=== PATIENT | female | born 1950 | race Caucasian/White ===

== ENCOUNTER 2016-04-21 17:14 | Inpatient (IN) | payer OTHER ==
[~2016-04-21] VITALS: Ht 157.5 cm; Wt 123.3 kg
[2016-04-21 17:26] VITALS: BP 175/112; PULSE 105; RESP 20; O2SAT 95
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
[2016-04-21 18:44] LABS: BASOPHILS % (AUTO) 0.4 % (0-3); EOSINOPHILS % (AUTO) 1.1 % (0-5); MONOCYTES % (AUTO) 5.2 % (4-12); Mean Corpuscular Hemoglobin 28.9 pg (27.0-35.0); Mean Corpuscular Volume 86.4 fL (81-100); NEUTROPHILS % (AUTO) 68.8 % (40-74); Platelet Count 243 bil/L (150-400)
[2016-04-21 19:00] LABS: INR 0.95 ratio
[2016-04-21 19:25] VITALS: BP 136/80; PULSE 96; RESP 20; O2SAT 94
[2016-04-21 19:26] LABS: TROPONIN T < 0.010 ug/L (0.0-0.011)
--- NOTE | 2016-04-21 19:26 | DRSVH ---
PROCEDURE: CT BRAIN (TPA) ([id number]) INDICATIONS: Stroke TECHNIQUE: Noncontrast 4.5 mm thick angled axial sections acquired from the foramen magnum to the vertex, with c oronal reformats. COMPARISON: None. FINDINGS: Image quality: Excellent. CSF spaces: Basal cisterns are patent. No extra-axial fluid collections. Ventricles are normal in size and shape except at the atrium of the left lateral ventricle where mild encephalomalacia at the medial left occipital region appears to produce slight enlargement, consistent with old stroke. Kevon tionally, over the high parietal cerebrum region there is what appears to be a subacute stroke, with slight effacement of the adjacent cortical sulci.. Brain: No midline shift. No intracranial masses or hemorrhage. Moreno-white matter interface is norm al. Skull and face: Calvarium and visualized facial bones are intact, without suspicious lesions. Sinuses: Visualized sinuses and mastoids are clear. IMPRESSION: The patient appears to have had a prior or chronic stroke medial left occipital region, a nd also what appears to be a subacute stroke at the superior left parietal cerebrum. This information was immediately called to the ordering emergency room physician for stroke protocol CT scan communication, at 7:20 in the early evening. This study fulfills neurological imaging criteria for inclusion or exclusion of acute stroke therapie s based on available published neurological imaging guidelines. Dictated by: Krishan Fontanez M.D. on 04/21/2016 at 19:20 Approved by: Krishan Fontanez M.D. on 04/21/2016 at 19:25
--- NOTE | 2016-04-21 19:55 | DRSVH ---
PROCEDURE: X-RAY CHEST ONE VIEW, PORTABLE ([id number]) INDICATIONS: CVA TECHNIQUE: One view of the chest was acquired. COMPARISON: None. FINDINGS: Surgical changes and devices: None. Lungs and pleura: No pleural effusions or pneumothorax. Lungs are clear. Mediastinum: Mediastinal contours appear normal. Heart size is normal. Bones and chest wall: No suspicious bony lesions. Overlying soft tissues appear unremarkable. IMPRESSION: Mildly reduced inspiratory volume greater on the right than the left and no acute disease is found. Mild bibasilar atelectasis. Dictated by: Krishan Fontanez M.D. on 04/21/2016 at 19:54 Approved by: Krishan Fontanez M.D. on 04/21/2016 at 19:55
[2016-04-21 21:22] VITALS: BP 134/60; PULSE 89; RESP 21; O2SAT 95
--- NOTE | 2016-04-21 21:24 | DRSVH ---
PROCEDURE: CT ANGIO BRAIN NECK TPA INDICATIONS: SLURRED SPEECH, DIFFICULTY USING RIGHT HAND TECHNIQUE: Pre-contrast 4.5 mm thick sections acquired from the foramen magnum to the vertex. After the adminis tration of intravenous contrast, 1 mm thick sections acquired from the aortic arch through the [place]. Post-contrast 4.5 mm thick sections then re-acquired from the foramen magnum to the vert ex. 3-dimensional [id number] (MIP) and/or volume rendering reformats were acquired of the central intracranial vasculature and neck separately. For radiation dose reduction, the foll owing was used: automated exposure control, adjustment of mA and/or kV according to patient size. COMPARISON: [facility], CT, BRAIN (TPA), 04/21/2016, 18:44. FINDINGS: Image quality: Excellent. BRAIN: CSF spaces: Ventricles are normal in size and shape except for slight prominence of the atrium of th e left lateral ventricle associated with what appears to be a small old stroke involving the medial l eft occipital region (remote past prior head CT or brain MRI is not available for review). Basal cis terns are patent. No extra-axial fluid collections. Brain: No midline shift. No intracranial bleeds or masses. Moreno-white matter interface appears int act except for a band of what appears to be subacute stroke involving the parietal lobe, near the vishal harrison of the cerebrum, left hemisphere. There is also the previously discussed area of medial left occ ipital encephalomalacia that appears to represent sequela of prior chronic stroke in that area from t he distant past. The subacute appearing abnormality measures approximately 1.5 x 2.5 x 3.5 cm, and a ppears to have slight mass effect effacing the immediate adjacent cortical sulci. A hyperacute ische rodney injury generally would not be identifiable by CT scanning but would be visible by MR scanning. Skull and face: Calvarium and facial bones appear intact, without suspicious lesions. Orbits appear normal. Sinuses: Sinuses and mastoids are clear. HEAD CT ANGIOGRAPHY: Anterior circulation: Intracranial internal carotid arteries are normal in size and flow. The flow within the paired anterior cerebral arteries is normal and symmetric. The flow within the middle cer ebral arteries is normal and symmetric. The anterior communicating artery is seen. No aneurysms are seen. Posterior circulation: Visualized portions of the vertebral arteries demonstrate normal anatomic kee iant asymmetric caliber, left vertebral dominant, and join to form a normal appearing basilar artery. Flow within the posterior cerebral arteries is normal and symmetric. No aneurysms are seen. NECK CT ANGIOGRAPHY: Carotid system: The great vessels demonstrate a conventional anatomy as they arise from the aortic a rch. The origins of the common carotid arteries appear patent. The common carotid arteries demonstr ate normal caliber and somewhat tortuous courses. The bifurcation regions are both widely patent. T he internal carotid arteries demonstrate normal calibers and somewhat tortuous courses. Posterior circulation: The origins of the vertebral arteries both appear widely patent. The more streeter perior extracranial portions of both vertebral arteries also demonstrate somewhat tortuous courses an d normal anatomic variant asymmetric left greater than right calibers. They join to form a normal ap pearing basilar artery. Soft tissues: Visualized neck soft tissues demonstrate no suspicious abnormalities. Bones: No suspicious bony lesions. Visualized cervical spine appears normally aligned. IMPRESSION: 1. As was seen during CT scanning earlier this evening there appears to be a medial left occipital c hronic infarction, and a subacute superior left parietal area of ischemic injury. MR scanning could be utilized if clinically warranted to confirm presence of subacute stroke in the area of current CT concern. 2. The cervical arterial vasculature, both carotid and vertebral, appears somewhat tortuous and this is generally seen in a patient with chronic hypertension. No aneurysm or dissection is found. 3. There is a normal anatomic variant dominant left vertebral artery. The arterial vasculature appe ars free of significant atherosclerotic soft or calcific plaque. This raises concern for cardiogenic origin of both the chronic and presumed subacute areas of left cerebrum abnormalities noted. 4. The cervical and intracranial arterial vasculature shows no identifiable aneurysm or thrombus/emb olus. This information was immediately called and discussed with the emergency room physician caring for th e patient, at 9:15 in the evening. Dictated by: Krishan Fontanez M.D. on 04/21/2016 at 21:06 Approved by: Krishan Fontanez M.D. on 04/21/2016 at 21:24
[2016-04-21] MEDS ORDERED: POTA20TA16 PO (21:37)
[2016-04-21] MEDS ORDERED: FRSM80T PO (21:37)
[2016-04-21] MEDS ORDERED: METF1000 PO (21:37)
[2016-04-21] MEDS ORDERED: LISI2.5T PO (21:37)
[2016-04-21] MEDS ORDERED: DIGO125T73 PO (21:37)
[2016-04-21] MEDS ORDERED: CARV3.122 PO (21:37)
[2016-04-21] MEDS ORDERED: PANT40TA3 PO (21:37)
[2016-04-21] MEDS ORDERED: Polyethylene Glycol (PEG) 17 Gm Powder PO PRN ×2 (21:40→22:40)
[2016-04-21] MEDS ORDERED: Ondansetron 2 mg/mL 2 mL Inj IV PRN ×2 (21:40→22:40)
[2016-04-21] MEDS ORDERED: Alum-Mag Hydrox-Simeth 30 mL Suspension PO PRN ×2 (21:40→22:40)
[2016-04-21] MEDS ORDERED: Labetalol 5 mg/mL 4 mL Inj IVPUSH PRN (22:40)
[2016-04-21 22:48] VITALS: BP 150/82; PULSE 95; RESP 20; O2SAT 96
[2016-04-21 22:54] VITALS: PULSE 86
[2016-04-21 23:48] LABS: INR 0.97 ratio
[2016-04-22] VITALS (9 sets, daily range): BP systolic 130–158; BP diastolic 81–93; PULSE 76–89; RESP 14–18; O2SAT 93–98
[2016-04-22 00:11] LABS: Magnesium 1.2 mg/dL (1.6-2.6)
[2016-04-22] MEDS ORDERED: Magnesium Sulfate 50% Inj 3 GM in Dextrose 5% 100 ML IV ONE (00:20)
[2016-04-22] MEDS ORDERED: Glucose 40% Oral Gel 15 Gm Tube PO PRN (00:35)
[2016-04-22] MEDS ORDERED: Mag Sulf 4 Gm/100 mL IV Premix (Mag < 1.6 & Creat < 2) IV ONE (00:40)
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
--- NOTE | 2016-04-22 03:51 | NUR ---
Admit [place] [facility] [place] 2230 with tech via stretcher. Pt easily able to ambulate to scale and then to bed w/o any assistance. Pt has speech delay and often is stuck word searching. Pt is A&O x 3, though it is difficult for her to get the words out. Pt presents with no strength deficits or balance deficit favoring either side. Pt states the R side feels different, that it feels "smaller". Pt oriented to room and call light, non slip socks for safety.
--- NOTE | 2016-04-22 03:55 | NUR ---
O2 Pt stated she uses oxymask at night, pt is high risk for SIMEON, oxymask in use tonight on 3L with a CPOX. Pt has frequently desat to high 80's but quickly returns to high 90's.
[2016-04-22 06:16] LABS: BASOPHILS % (AUTO) 0.2 % (0-3); EOSINOPHILS % (AUTO) 1.2 % (0-5); MONOCYTES % (AUTO) 4.9 % (4-12); Mean Corpuscular Hemoglobin 28.9 pg (27.0-35.0); Mean Corpuscular Volume 87.4 fL (81-100); NEUTROPHILS % (AUTO) 64.3 % (40-74); Platelet Count 239 bil/L (150-400)
[2016-04-22] MEDS: Heparin 5,000 Unit/mL Inj SUBQ SCH ×2 (07:37→21:39)
[2016-04-22] MEDS: Insulin LISPRO 300 Unit/3 mL Inj SUBQ SCH ×4 (08:20→21:38)
--- NOTE | 2016-04-22 08:54 | NUR ---
MRI Pt transported to MRI via by transporter. Pt drowsy, able to transfer SBA/1 PA to WC Addendum: 04/22/16 at 0925 by SHERYL ANDERSON RN 0930 Pt returned from MRI Addendum: 04/22/16 at 1413 by SHERYL ANDERSON RN UA reported pt had yellow colored oatmeal consistency loose stool.
--- NOTE | 2016-04-22 10:04 | DRSVH ---
PROCEDURE: MRI BRAIN WITHOUT CONTRAST ([id number]) INDICATIONS: stroke TECHNIQUE: Non-contrast axial T1 spin echo, axial T2 fast spin echo, sagittal and axial FLAIR, coronal T2 fast s pin echo, axial gradient echo, axial diffusion and ADC through the brain. COMPARISON: [facility], CT, CT ANGIO BRAIN NECK TPA, 04/21/2016, 20:06. [facility], CT, BRAIN (TPA), 04/21/2016, 18:44. FINDINGS: Image quality: Excellent. CSF spaces: Ventricles appear symmetric in size and shape. Basal cisterns are patent. No extra-axi al fluid collections. Brain: No intracranial bleeds or mass effects. There is cerebral volume loss for age. There are pe riventricular and deep white matter chronic small vessel ischemic changes. Brainstem appears normal. Diffusion-weighted images demonstrate restricted diffusion within the left posterior parietal lobe with corresponding hypointense ADC signal/hyperintense T2/FLAIR signal. There is no associated superi mposed hemorrhage. No chronic ischemic insults. Normal intravascular flow voids are present. Skull and face: Calvarial bone marrow is normal in signal. Orbits are normal. Sinuses: Sinuses and mastoids are clear. IMPRESSION: 1. Restricted diffusion within the left posterior parietal region consistent with subacute ischemia. No superimposed hemorrhage. 2. Moderate chronic microvascular ischemic changes. Dictated by: Annetta Titus M.D. on 04/22/2016 at 9:41 Approved by: Annetta Titus M.D. on 04/22/2016 at 10:02
--- NOTE | 2016-04-22 11:00 | NUR ---
Evaluation completed. Please go to "Notes" then click on "Assessments and Notes" (bottom left corner of screen). Then select appropriate discipline tab on top of screen.
--- NOTE | 2016-04-22 11:48 | NUR ---
Evaluation completed. Please go to "Notes" then click on "Assessments and Notes" (bottom left corner of screen). Then select appropriate discipline tab on top of screen.
--- NOTE | 2016-04-22 12:14 | NUR ---
Evaluation completed. Please go to "Notes" then click on "Assessments and Notes" (bottom left corner of screen). Then select appropriate discipline tab on top of screen.
--- NOTE | 2016-04-22 14:42 | NUR ---
NUTRITION ASSESSMENT: ASSESS: 65 YO female admitted for CVA. Pt diet has been advanced to General but no po intake has been reported. PMHx: DM type 2, HTN, obesity, CKD stage III, SIMEON, duodenal ulcer, anemia. LABS: Reviewed. Glu 189, Alb 3.6. MEDS: Reviewed. GI: No BM reported yet. CURRENT WT: 123.6 kg. Adj BW: 68.4 kg. DIET: General, No po intake reported. EST. NEEDS (BMI): 2600-6886 kcals (25-30 kcals/kg Adj BW), 80-100 g protein (1.2-1.5 g/kg Adj BW) NUTRITION DIAGNOSIS: 1.) No nutritional diagnosis at this time. NUTRITION INTERVENTION: 1.) No nutritional intentions at this time. MONITOR / EVAL: PO intake, labs, nutritional status. Follow per moderate nutritional risk guidelines.
--- NOTE | 2016-04-22 16:34 | NUR ---
Social Work-screening: Data:EMR Reviewed. Pt is a 65 y/o female who was admitted on 04/21/16 for CVA per H&P. Pt's insurance is and PCP is Alex Hanks. EMR Reviewed. PT/ST/OT have cleared pt for home with outpt services. PT resides at home with . No anticipated discharge needs. SW will continue to follow if needs arise. Assessment:Pt who is independent at baseline. Plan:Pt to discharge home when medically stable via POV. No anticipated discharge needs. SW will continue to follow if needs arise. GIO Latham
[2016-04-23 02:39] VITALS: PULSE 75
--- NOTE | 2016-04-23 03:48 | NUR ---
Shift Note Pt slept most of shift. Up to bathroom x1. Desat down to mid 70s while sleeping r/t SIMEON then goes back up to high 90s. Put on continuous pulse ox. Pt stated there is no one who can bring in her BiPap from home. Pt continues to have difficulty finding words. bed down, locked and call light in reach.
[2016-04-23 04:28] VITALS: BP 174/98; PULSE 73; RESP 20; O2SAT 98
[2016-04-23 07:09] LABS: BASOPHILS % (AUTO) 0.4 % (0-3); EOSINOPHILS % (AUTO) 1.7 % (0-5); MONOCYTES % (AUTO) 5.7 % (4-12); Mean Corpuscular Hemoglobin 28.9 pg (27.0-35.0); Mean Corpuscular Volume 87.3 fL (81-100); NEUTROPHILS % (AUTO) 57.2 % (40-74); Platelet Count 206 bil/L (150-400)
[2016-04-23 09:14] VITALS: BP 166/105; PULSE 90; RESP 16; O2SAT 95
[2016-04-23] MEDS: Insulin LISPRO 300 Unit/3 mL Inj SUBQ SCH ×2 (09:25→12:35)
[2016-04-23] MEDS: Heparin 5,000 Unit/mL Inj SUBQ SCH (09:26)
[2016-04-23 10:16] VITALS: PULSE 82
--- NOTE | 2016-04-23 12:44 | DRSVH ---
Formerly [facility] [address] [place] [address] Echocardiogram Report Name: DESTINEY OLIVEROS Study Date: 04/23/2016 Height: 62 in Hospital Exam Location: [facility] Weight: 272 lb Gender: Female BSA: 2.2 m2 : 1950 Age: 65 yrs BP: 174/98 mmHg Reason For Study: CVA Ordering Physician: Performed By: Bisi Guzmán Referring Physician: CHANDLER MURRAY Interpretation Summary 1) Moderately dilated left ventricle with moderately reduced systolic function (EF 35-40%). 2) Apical anterolateral wall, apical anterior wall, inferolateral wall, proximal to mid anterior wall and proximal to mid anterolateral wall have severe hypokinesis. The mid to distal inferior wall and the septum have the best wall motion. 3) Normal right ventricular size and function. 4) No hemodynamically significant valvular abnormalities. 5 No interatrial shunt present based on bubble study. 6) No prior study available for comparison. 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 Procedure: A two-dimensional transthoracic echocardiogram with color flow and Doppler was performed. The study quality was technically adequate. There is no prior echocardiogram noted for this patient. A contrast injection of Definity was performed to improve assessment of LV function. A saline contrast injection was performed to assess for cardiac shunting. The patient was in normal sinus rhythm during the exam. Left Ventricle: The left ventricle is moderately dilated. There is normal left ventricular wall thickness. The ejection fraction is estimated to be 35- 40%. Left ventricular systolic function is moderately reduced. Apical anterolateral wall, apical anterior wall, inferolateral wall, proximal to mid anterior wall and proximal to mid anterolateral wall have severe hypokinesis. The mid to distal inferior wall and the septum have the best wall motion. Assessment of diastolic parameters suggests a pseudonormalization pattern, consistent with elevated filling pressures. Right Ventricle: The right ventricle is normal in size, thickness and function. Atria: Both atria are normal in size. Injection of contrast documented no interatrial shunt. Mitral Valve: The mitral valve leaflets appear thickened, but open well. There is no mitral regurgitation noted. Aortic Valve: The aortic valve is trileaflet. The aortic valve opens well. There is mild aortic valve sclerosis. There is no hemodynamically significant valvular aortic stenosis. There is trace aortic regurgitation. Tricuspid Valve: The tricuspid valve is normal. No tricuspid regurgitation. Pulmonary artery pressures cannot be estimated because of the lack of a measurable TR jet velocity. Pulmonic Valve: The pulmonic valve is not well visualized. There is a trace or physiologic amount of pulmonic regurgitation. Great Vessels: The aortic root is normal size. The ascending aorta is at the upper limits of normal in size. The aortic arch could not be visualized. The pulmonary artery is not well visualized, but is probably normal size. The inferior vena cava was not visualized. Pericardium/ Pleura There is no pericardial effusion. There is no pleural effusion. MMode/2D Measurements & Calculations LVIDd: 6.2 cm LA dimension LVOT diam LV tobar. diameter/BSA LVIDs: 5.4 cm (cm/m^2): 2.9 FS: 14.1 % LA A2 area AoV Opening EPSS: 1.5 cm IVSd: 0.92 cm Ao root diam LVPWd: 1.2 cm LA A4 area asc Aorta LA length (vol) Diam: 3.5 cm LA vol: 48.9 ml LA vol index : 22.4 ml/m2 LV sys. diameter/BSA (cm/m^2): 2.5 Doppler Measurements & Calculations Ao V2 max: 214.7 cm/secMV E max hawk MV E/A: 0.59 PA V2 max Ao max P.4 mmHg : 68.6 cm/sec Med Peak E' Hawk : 69.2 cm/sec Ao mean P.4 mmHg MV A max hawk PA mean PG : 116.6 cm/sec E/E' med: 29.6 MV P1/2t: 81.4 msecLat Peak E' Hawk PA Accel Time : 0.09 sec E/E' lat: 9.4 E/e' average Pulm A Revs Dur MV A dur: 0.14 sec MV dec time: 0.28 sec MV P1/2t max hawk Ao V2 mean PA V2 mean : 147.4 cm/sec : 53.6 cm/sec Ao V2 VTI: 42.5 cm MVA(P1/2t): 2.7 cm2 Pulm A Revs Dur - MV A Dur: -0.01 msec Reading Physician:12:43 PM
[2016-04-23] MEDS ORDERED: Magnesium Sulf 2 Gm/50mL Water 2 GM in IV Premix 1 EACH IV ONE ×2 (12:55→15:05)
[2016-04-23 13:20] VITALS: BP 144/89; PULSE 97; RESP 16; O2SAT 97
--- NOTE | 2016-04-23 13:51 | NUR ---
Social Work Readiness for Discharge: SW met with patient at bedside to discuss discharge plan. Per report in rounds, discussion of possible discharge today. SW spoke to patient regarding recommendations for inpt rehab. PT notes reflect ambulation of 125ft. SW spoke with OT rep Kolb to to assess patient today for further eval. Patient states being in agreement to inpt rehab at [facility] vs outpt therapy treatments upon discharge. Patient states she to contact local outpt therapy center upon discharge for appointment if recommendations for outpt therapy. Patient payer as [employer]. Pending further therapy eval, SW to ensure inpt rehab vs outpt PT upon discharge. Patient states her is retired and able to care and assist with needs at home upon discharge. SW to follow. PLAN: Inpt rehab vs outpt rehab, pending clinical course Nadeen POWERS Addendum: 04/23/16 at 1436 by JOSH AGUIRRE Per OT, recommendations for home with outpt services at this time. Patient well to discharge home with outpt therapies. Outpt Script in chart and patient to follow up for appointment. No other needs PLAN: Home with and outpt therapies follow up Nadeen POWERS
--- NOTE | 2016-04-23 13:55 | PCM.PNMED ---
Subjective Date of Service Apr 23, 2016 Subjective Pt seen and examined today. Patient is in good spirits however she still has difficulty recollecting words. Patient is otherwise stable for discharge. Exam Vital Signs Vital Sign - Last Date Time Temp Pulse Resp B/P Pulse Ox O2 Delivery O2 Flow Rate FiO2 04/23/16 10:16 82 04/23/16 09:14 36.8 16 166/105 95 Room Air 04/23/16 04:28 5.00 Intake and Output 04/22/16 04/22/16 04/23/16 Cumulative From/Thru 15:00 23:00 07:00 04/21/16 17:26 - 04/23/16 04:28 Intake Total 400 ml 400 ml 923 ml Balance 400 ml 400 ml 923 ml Intake Oral 400 ml 400 ml IV Total 400 ml 523 ml # Voids 1 2 4 # Bowel Movements 1 1 Exam General: Obese female sitting up on bed. Some slurred speech. No acute distress , well-developed, well-nourished, appropriately interactive HEENT: Nasal canula in place.Normocephalic, atraumatic. External ears without defect. Pupils equal, round, and reactive to light and accommodation. Moist conjunctivae. Oropharynx with moist mucosa. Neck: Supple with full range of motion.No lymphadenopathy Cardiovascular: Regular rate and rhythm with no murmurs, rubs, or gallops appreciated Pulmonary: Clear to auscultation bilaterally with no crackles, wheezes, or rhonchi. Normal respiratory effort with no use of accessory muscles. Abdomen: Bowel tones present. Soft, nontender, nondistended. Extremities: No clubbing, cyanosis, edema, appreciated. Skin: Normal temperature, turgor, and texture; no rash, ulcers, or subcutaneous nodules appreciated. Psychiatric: Normal mood and affect. Alert and oriented to person, place, and time. Neuro: Word searching, slurred speech, decreased sensation on right side( face, arm, leg). 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 Normal muscle strength , tone, and bulk bilaterally. Lab and Diagnostics Result Diagram: 04/23/16 0600 04/23/16 0600 X-Rays, CTs and MRIs PROCEDURE: X-RAY CHEST ONE VIEW, PORTABLE ([id number]) INDICATIONS: CVA TECHNIQUE: One view of the chest was acquired. COMPARISON: None. FINDINGS: Surgical changes and devices: None. Lungs and pleura: No pleural effusions or pneumothorax. Lungs are clear. Mediastinum: Mediastinal contours appear normal. Heart size is normal. Bones and chest wall: No suspicious bony lesions. Overlying soft tissues appear unremarkable. IMPRESSION: Mildly reduced inspiratory volume greater on the right than the left and no acute disease is found. Mild bibasilar atelectasis. Dictated by: Krishan Fontanez M.D. on 04/21/2016 at 19:54 Approved by: Krishan Fontanez M.D. on 04/21/2016 at 19:55 PROCEDURE: CT BRAIN (TPA) ([id number]) INDICATIONS: Stroke TECHNIQUE: Noncontrast 4.5 mm thick angled axial sections acquired from the foramen magnum to the vertex, with coronal reformats. COMPARISON: None. FINDINGS: Image quality: Excellent. CSF spaces: Basal cisterns are patent. No extra-axial fluid collections. Ventricles are normal in size and shape except at the atrium of the left lateral ventricle where mild encephalomalacia at the medial left occipital region appears to produce slight enlargement, consistent with old stroke. Additionally, over the high parietal cerebrum region there is what appears to be a subacute stroke, with slight effacement of the adjacent cortical sulci.. Brain: No midline shift. No intracranial masses or hemorrhage. Moreno-white matter interface is normal. Skull and face: Calvarium and visualized facial bones are intact, without suspicious lesions. Sinuses: Visualized sinuses and mastoids are clear. IMPRESSION: The patient appears to have had a prior or chronic stroke medial left occipital region, and also what appears to be a subacute stroke at the superior left parietal cerebrum. This information was immediately called to the ordering emergency room physician for stroke protocol CT scan communication, at 7:20 in the early evening. This study fulfills neurological imaging criteria for inclusion or exclusion of acute stroke therapies based on available published neurological imaging guidelines. Dictated by: Krishan Fontanez M.D. on 04/21/2016 at 19:20 Approved by: Krishan Fontanez M.D. on 04/21/2016 at 19:25 PROCEDURE: CT ANGIO BRAIN NECK TPA INDICATIONS: SLURRED SPEECH, DIFFICULTY USING RIGHT HAND TECHNIQUE: Pre-contrast 4.5 mm thick sections acquired from the foramen magnum to the vertex. After the administration of intravenous contrast, 1 mm thick sections acquired from the aortic arch through the [place]. Post-contrast 4.5 mm thick sections then re-acquired from the foramen magnum to the vertex. 3- dimensional tijbvda-szeijctwh-eceinkvjhm (MIP) and/or volume rendering reformats were acquired of the central intracranial vasculature and neck separately. For radiation dose reduction, the following was used: automated exposure control, adjustment of mA and/or kV according to patient size. COMPARISON: [facility], CT, BRAIN (TPA), 04/21/2016, 18:44. FINDINGS: Image quality: Excellent. BRAIN: CSF spaces: Ventricles are normal in size and shape except for slight prominence of the atrium of the left lateral ventricle associated with what appears to be a small old stroke involving the medial left occipital region ( remote past prior head CT or brain MRI is not available for review). Basal cisterns are patent. No extra-axial fluid collections. Brain: No midline shift. No intracranial bleeds or masses. Moreno-white matter interface appears intact except for a band of what appears to be subacute stroke involving the parietal lobe, near the vertex of the cerebrum, left hemisphere. There is also the previously discussed area of medial left occipital encephalomalacia that appears to represent sequela of prior chronic stroke in that area from the distant past. The subacute appearing abnormality measures approximately 1.5 x 2.5 x 3.5 cm, and appears to have slight mass effect effacing the immediate adjacent cortical sulci. A hyperacute ischemic injury generally would not be identifiable by CT scanning but would be visible by MR scanning. Skull and face: Calvarium and facial bones appear intact, without suspicious lesions. Orbits appear normal. Sinuses: Sinuses and mastoids are clear. HEAD CT ANGIOGRAPHY: Anterior circulation: Intracranial internal carotid arteries are normal in size and flow. The flow within the paired anterior cerebral arteries is normal and symmetric. The flow within the middle cerebral arteries is normal and symmetric. The anterior communicating artery is seen. No aneurysms are seen. Posterior circulation: Visualized portions of the vertebral arteries demonstrate normal anatomic variant asymmetric caliber, left vertebral dominant , and join to form a normal appearing basilar artery. Flow within the posterior cerebral arteries is normal and symmetric. No aneurysms are seen. NECK CT ANGIOGRAPHY: Carotid system: The great vessels demonstrate a conventional anatomy as they arise from the aortic arch. The origins of the common carotid arteries appear patent. The common carotid arteries demonstrate normal caliber and somewhat tortuous courses. The bifurcation regions are both widely patent. The internal carotid arteries demonstrate normal calibers and somewhat tortuous courses. Posterior circulation: The origins of the vertebral arteries both appear widely patent. The more superior extracranial portions of both vertebral arteries also demonstrate somewhat tortuous courses and normal anatomic variant asymmetric left greater than right calibers. They join to form a normal appearing basilar artery. Soft tissues: Visualized neck soft tissues demonstrate no suspicious abnormalities. Bones: No suspicious bony lesions. Visualized cervical spine appears normally aligned. IMPRESSION: 1. As was seen during CT scanning earlier this evening there appears to be a medial left occipital chronic infarction, and a subacute superior left parietal area of ischemic injury. MR scanning could be utilized if clinically warranted to confirm presence of subacute stroke in the area of current CT concern. 2. The cervical arterial vasculature, both carotid and vertebral, appears somewhat tortuous and this is generally seen in a patient with chronic hypertension. No aneurysm or dissection is found. 3. There is a normal anatomic variant dominant left vertebral artery. The arterial vasculature appears free of significant atherosclerotic soft or calcific plaque. This raises concern for cardiogenic origin of both the chronic and presumed subacute areas of left cerebrum abnormalities noted. 4. The cervical and intracranial arterial vasculature shows no identifiable aneurysm or thrombus/embolus. This information was immediately called and discussed with the emergency room physician caring for the patient, at 9:15 in the evening. Dictated by: Krishan Fontanez M.D. on 04/21/2016 at 21:06 Approved by: Krishan Fontanez M.D. on 04/21/2016 at 21:24 Assessment & Plan Acute CVA, present on admission, ongoing -CT and CTA positive for subacute stroke at superior left parietal region -Pt presented outside of window for tPA. ER contacted [facility], who stated pt was not candidate for surgical treatment -Pt still has difficulty finding the right words at times - Pt has no motor/sensory dyfunctions - will recommned home pt/ot - will dc on aspirin and statin Diabetes mellitus, present on admission, ongoing -Low dose correctional scale to be used -resume home meds on discharge Hypomagnesemia, present on admission, ongoing -Mag low at 1.2 -Mag 4gm ordered Chronic hypertension, present on admission, ongoing -Patient on digoxin, will hold home dose -Digoxin level of 0.7 -Holding home medications GERD -Holding home medications PCP: Dr Alex Hanks Code: Compressions OK, Cardioversion OK. DO NOT INTUBATE. VTE Prophylaxis: Sub-Q Heparin (Unfractionated) VTE Mechanical Devices: Intermittant Pneumatic CD Resuscitation Status: Limited Interventions (cpr and cardioversion OK. DO NOT INTUBATE) Mohan Nath MD Apr 23, 2016 13:54
[2016-04-23] MEDS ORDERED: ASPI-973 PO (14:00)
[2016-04-23] MEDS ORDERED: ATOR40TA69 PO (14:00)
[2016-04-23] MEDS ORDERED: [UNRECOGNIZED DRUG - REMARK] (14:03)
[2016-04-23] MEDS ORDERED: physical therapy (14:03)
--- NOTE | 2016-04-23 16:54 | NUR ---
Discharge Pt. discharged to home in stable condition at 1630. Denies chest pain, SOB, N/V. AOX3. Word searching. Equal strength to all extremities. IV and tele dc'd prior to discharge. All belongings, scripts and instructions sent home with pt. driving pt. home. No questions or concerns at this time.
--- NOTE | 2016-05-16 20:12 | PCM.DC.MED ---
Discharge Summary Date of Service May 16, 2016 Dates of Hospitalization Date of Hospital Admission Apr 21, 2016 at 21:49 Date of Discharge: Apr 23, 2016 Providers: Admitting Physician: Laurie Milan DO Primary Care Physician: Alex Hanks MD Attending Physician: Laurie Milan DO Diagnosis at Time of Discharge Diagnosis at Time of Discharge 1. Acute cerebrovascular accident 2. Diabetes mellitus, type II, chronic 3. Hypomagnesemia 4. Hypertension, chronic 5. Systolic congestive heart failure, possible new finding this admission Consultations None Procedures XRay, CTs & MRIs MRI BRAIN WITHOUT CONTRAST IMPRESSION: 1. Restricted diffusion within the left posterior parietal region consistent with subacute ischemia. No superimposed hemorrhage. 2. Moderate chronic microvascular ischemic changes. Dictated and approved by: Annetta Titus M.D. on 04/22/2016 at 9:41 CT ANGIO BRAIN NECK TPA IMPRESSION: 1. As was seen during CT scanning earlier this evening there appears to be a medial left occipital chronic infarction, and a subacute superior left parietal area of ischemic injury. MR scanning could be utilized if clinically warranted to confirm presence of subacute stroke in the area of current CT concern. 2. The cervical arterial vasculature, both carotid and vertebral, appears somewhat tortuous and this is generally seen in a patient with chronic hypertension. No aneurysm or dissection is found. 3. There is a normal anatomic variant dominant left vertebral artery. The arterial vasculature appears free of significant atherosclerotic soft or calcific plaque. This raises concern for cardiogenic origin of both the chronic and presumed subacute areas of left cerebrum abnormalities noted. 4. The cervical and intracranial arterial vasculature shows no identifiable aneurysm or thrombus/embolus. This information was immediately called and discussed with the emergency room physician caring for the patient, at 9:15 in the evening. Dictated and approved by: Krishan Fontanez M.D. on 04/21/2016 at 21:06 CT BRAIN (TPA) IMPRESSION: The patient appears to have had a prior or chronic stroke medial left occipital region, and also what appears to be a subacute stroke at the superior left parietal cerebrum. This information was immediately called to the ordering emergency room physician for stroke protocol CT scan communication, at 7:20 in the early evening. This study fulfills neurological imaging criteria for inclusion or exclusion of acute stroke therapies based on available published neurological imaging guidelines. Dictated and approved by: Krishan Fontanez M.D. on 04/21/2016 at 19:20 X-RAY CHEST ONE VIEW, PORTABLE IMPRESSION: Mildly reduced inspiratory volume greater on the right than the left and no acute disease is found. Mild bibasilar atelectasis. Dictated and approved by: Krishan Fontanez M.D. on 04/21/2016 at 19:54 ECG 12 Lead Sinus rhythm, rate 95, QTC 443, left atrial enlargement, left anterior fascicular block, no acute ST changes, possible T-wave abnormalities in the lateral leads. Cardiac Echo Impression Echocardiogram Report Interpretation Summary 1) Moderately dilated left ventricle with moderately reduced systolic function ( EF 35-40%). 2) Apical anterolateral wall, apical anterior wall, inferolateral wall, proximal to mid anterior wall and proximal to mid anterolateral wall have severe hypokinesis. The mid to distal inferior wall and the septum have the best wall motion. 3) Normal right ventricular size and function. 4) No hemodynamically significant valvular abnormalities. 5 No interatrial shunt present based on bubble study. 6) No prior study available for comparison. 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 Reading Physician:12: 43 PM Invasive Procedures None Other Diagnostics None Brief History From the H&P performed by Dr. Alison Soto on 04/22/2016: 65-year-old female with a history of diabetes, hypertension and GERD presented to the ER with right-sided weakness and some slurred speech. Patient reports that this morning when she woke up and went downstairs she felt some weakness on her right side, dropping her glass and not being able to hold things. She states that later in the day she found it difficult to speak, finding it difficult to find the words that she needed to say. She states that she felt very tired and went to sleep and slept in the car as her drove her from [employer] to [place]. She states when she arrived in [place] she noticed her slurring continued and increasing word searching. Patient reports that earlier in the day she had a left parietal headache, that has since resolved. Patient denies using daily aspirin. Patient reports that the symptoms were not resolving her became concerned and brought her to the ER. The ER patient had an IHS score 4, and [facility] neurology was contacted who advised against any surgical intervention. Patient was not a candidate for TPA due to late presentation. CT and CTA were performed in the ER The patient's temperature was 37.3, pulse 105, respiratory rate 20, blood pressure 175/112, pulse ox 95 on room air. Hospital Course Acute CVA, present on admission, ongoing -CT and CTA positive for subacute stroke at superior left parietal region -Patient presented outside of window for tPA. ER contacted [facility] Neurology, who stated patient was not candidate for surgical treatment -Patient still has difficulty finding the right words at times -Patient has no motor/sensory dyfunction -We will recommend home physical and occupational therapies -Discharged on aspirin and statin Diabetes mellitus, present on admission, ongoing -Low dose correctional scale used while inpatient -Resumed metformin on discharge Hypomagnesemia, present on admission, ongoing -Magnesium low at 1.2 -Magnesium, 4gm IV, ordered prior discharge Chronic hypertension, present on admission, ongoing -Resumed carvedilol and lisinopril at time of discharge GERD -Resumed pantoprazole at time of discharge Systolic congestive heart failure -Likely ischemic cardiomyopathy; please see echocardiogram findings above -Patient discharged on aspirin, atorvastatin, carvedilol, digoxin, furosemide, lisinopril, and potassium replacement Exam Last vitals taken on 04/23/2016 at 1320: Temperature: 36.7 Pulse: 97 Blood pressure: 144/89 Respiratory rate: 16 Pulse oximetry 97% on room air . Exam Patient seen and examined by Dr. Mohan Armijo on 04/23/2016: General: Obese female sitting up on bed. Some slurred speech. No acute distress , well-developed, well-nourished, appropriately interactive HEENT: Nasal canula in place.Normocephalic, atraumatic. External ears without defect. Pupils equal, round, and reactive to light and accommodation. Moist conjunctivae. Oropharynx with moist mucosa. Neck: Supple with full range of motion.No lymphadenopathy Cardiovascular: Regular rate and rhythm with no murmurs, rubs, or gallops appreciated Pulmonary: Clear to auscultation bilaterally with no crackles, wheezes, or rhonchi. Normal respiratory effort with no use of accessory muscles. Abdomen: Bowel tones present. Soft, nontender, nondistended. Extremities: No clubbing, cyanosis, edema, appreciated. Skin: Normal temperature, turgor, and texture; no rash, ulcers, or subcutaneous nodules appreciated. Psychiatric: Normal mood and affect. Alert and oriented to person, place, and time. Neuro: Word searching, slurred speech, decreased sensation on right side( face, arm, leg). Mildly decreased olive grader strength on right side. Normal muscle strength , tone, and bulk bilaterally. Test 04/21/16 18:32 04/21/16 23:20 04/23/16 06:00 Activated Partial Thromboplast Time 22.4sec (22.8-33.0) Troponin T < 0.010ug/L (0.0-0.011) Pro-B-Type Natriuretic Peptide 1722pg/mL (0-287) Digoxin Level 0.7nG/mL (0.9-2.0) Prothrombin Time 10.4sec (8.1-12.5) Prothromb Time International Ratio 0.97ratio Hemoglobin A1c 10.2% (4.8-5.6) Triglycerides Level 399mg/dL (0-149) Cholesterol Level 199mg/dL (100-199) LDL Cholesterol, Calculated 88.200mg/dL (0-99) VLDL Cholesterol 79.800mg/dL HDL Cholesterol 31mg/dL (>39) Cholesterol/HDL Ratio 6.42 (0.0-4.4) White Blood Count 9.2th/mm3 (3.8-10.1) Red Blood Count 4.57mil/mm3 (3.90-5.20) Hemoglobin 13.2g/dL (12.0-15.6) Hematocrit 39.9% (35.0-46.0) Mean Corpuscular Volume 87.3fL (81-100) Mean Corpuscular Hemoglobin 28.9pg (27.0-35.0) Mean Corpuscular Hemoglobin Concent 33.1% (32.0-37.0) Red Cell Distribution Width 13.2% (12.3-15.4) Platelet Count 206bil/L (150-400) Neutrophils (%) (Auto) 57.2% (40-74) Lymphocytes (%) (Auto) 34.6% (14-46) Monocytes (%) (Auto) 5.7% (4-12) Eosinophils (%) (Auto) 1.7% (0-5) Basophils (%) (Auto) 0.4% (0-3) Sodium Level 136mEq/L (134-144) Potassium Level 4.1mEq/L (3.5-5.2) Chloride Level 96mEq/L (97-108) Carbon Dioxide Level 24mmol/L (18-29) Blood Urea Nitrogen 15mg/dL (8-27) Creatinine 0.86mg/dL (0.57-1.00) Estimat Glomerular Filtration Rate 95mL/min (>59) Glucose Level 198mg/dL (60-99) Calcium Level 8.6mg/dL (8.5-10.1) Magnesium Level 1.6mg/dL (1.6-2.6) Total Bilirubin 0.7mg/dL (0.0-1.2) Aspartate Amino Transf (AST/SGOT) 28U/L (0-50) Alanine Aminotransferase (ALT/SGPT) 17U/L (0-32) Alkaline Phosphatase 81U/L (25-165) Total Protein 6.6g/dL (6.4-8.4) Albumin 3.6g/dL (3.4-5.0) Microbiology Results None Discharge Medications Discharge Medications Aspirin (Aspirin) 81 Mg Tablet 81 MG PO DAILY Prescribed by: MOHAN ARMIJO MD Atorvastatin Calcium (Atorvastatin Calcium) 40 Mg Tablet 40 MG PO HS Prescribed by: MOHAN ARMIJO MD Carvedilol (Carvedilol) 3.125 Mg Tablet 3.125 MG PO BID (Reported) Digoxin (Digoxin) 125 Mcg Tablet 125 MCG PO DAILYWD (Reported) Furosemide (Furosemide) 80 Mg Tab 40 MG PO QAM (Reported) Lisinopril (Lisinopril) 2.5 Mg Tablet 2.5 MG PO DAILY (Reported) Metformin (Glucophage) 1,000 Mg Tablet 1,000 MG PO BID (Reported) Pantoprazole DR (Pantoprazole DR) 40 Mg Tablet.dr 40 MG PO BID (Reported) Potassium Chloride (Potassium Chloride) 20 Meq Tab.er.prt 20 MEQ PO BID ( Reported) TAKE WITH FOOD Durable Medical Equipment ([physical therapy]) (DME) Prescribed by: MOHAN ARMIJO MD ([occupational therapy]) (DME) Prescribed by: MOHAN ARMIJO MD Followup Plan Patient Instructions take medications as prescribed work with pt/ot as best as you can daily practice will improve your verbal ability Follow-up with PCP in: 1 week copies to: Alex Hanks MD, Robert W MD May 16, 2016 20:12
== END 2016-04-23 14:30 | disposition home or self-care (01) | DRG 66 ==
LOC: SED 17:14 → MOC 21:49
PROVIDERS: ADMIT Internal Medicine; ATTEND Internal Medicine
DX: I63.8 Other cerebral infarction (principal); E11.9 Type 2 diabetes mellitus without complications; E83.42 Hypomagnesemia; I10 Essential (primary) hypertension; I25.5 Ischemic cardiomyopathy; R47.81 Slurred speech; Z79.84 Long term (current) use of oral hypoglycemic drugs